=== PATIENT | female | born 1975 | race African-American/Black ===

== ENCOUNTER 2024-05-24 20:15 | Emergency (ER) | payer OTHER ==
[~2024-05-24] VITALS: Ht 172.7 cm; Wt 85.0 kg
[2024-05-24 20:18] VITALS: BP 160/83; PULSE 118; RESP 22; O2SAT 100
[2024-05-24] MEDS: LORAZEPAM 1MG TABLET PO ONE (22:27)
[2024-05-24] MEDS ORDERED: HYDR-3992 MT (22:57)
== END 2024-05-25 01:57 | disposition home or self-care (01) ==
LOC: ER 20:15
DX: F41.0 Panic disorder [episodic paroxysmal anxiety] (principal); K21.9 Gastro-esophageal reflux disease without esophagitis
CPT/HCPCS: 93005; 99283

== ENCOUNTER 2024-08-09 14:18 | Emergency (ER) | payer OTHER ==
[~2024-08-09] VITALS: Ht 177.8 cm; Wt 80.0 kg
[~2024-08-09 14:18] MED LIST: HYDR-3992 MT
[2024-08-09 14:21] VITALS: BP 161/96; PULSE 132; RESP 18; TEMP 98.2; O2SAT 97
[2024-08-09] MEDS ORDERED: IBUPROFEN 400MG TABLET PO ONE (14:45)
[2024-08-09] MEDS ORDERED: ACETAMINOPHEN 325MG TABLET PO ONE (14:45)
[2024-08-09] MEDS ORDERED: LORAZEPAM 0.5MG TABLET PO ONE (14:45)
[2024-08-09 15:54] LABS: BASOPHILS % 0.3 % (0.0-2.0); EOSINOPHILS % 0.8 % (0.0-5.0); HEMATOCRIT. 39.4 % (36.0-48.0); HEMOGLOBIN. 13.1 g/dL (12.0-16.0); LYMPHOCYTES % 7.5 % (20.0-50.0); MEAN CORPUSCULAR HEMOGLOBIN 28.6 pg (28.0-32.0); MEAN CORPUSCULAR HGB CONC 33.3 g/dL (31.0-37.0); MEAN CORPUSCULAR VOLUME 85.8 fL (81.0-99.0); MEAN PLATELET VOLUME 7.3 fl (7.4-10.4); MONOCYTES % 6.4 % (2.0-8.0); PLATELET 381 x1000/uL (130-400); RED CELL DISTRIBUTION WIDTH 14.2 % (11.6-14.6); WHITE BLOOD COUNT 11.1 x1000/uL (4.5-11.0)
[2024-08-09 16:02] LABS: CHLORIDE 107 mEq/L (98-107); POTASSIUM 3.8 mEq/L (3.5-5.1); SODIUM 139 mEq/L (136-145)
[2024-08-09 16:03] LABS: CARBON DIOXIDE 27 mEq/L (21-32)
[2024-08-09 16:04] LABS: CALCIUM 9.6 mg/dL (8.7-10.4)
[2024-08-09 16:06] LABS: HCG SCREEN NEGATIVE
[2024-08-09 16:08] LABS: CREATININE 0.8 mg/dL (0.6-1.0); GLUCOSE 107 mg/dL (70-105)
[2024-08-09 16:09] LABS: UREA NITROGEN BLOOD 12 mg/dL (9-23)
[2024-08-09 16:10] LABS: ALANINE AMINOTRANSFERASE 9 IU/L (10-49); ALBUMIN 4.4 g/dL (3.2-4.8); ASPARTATE AMINOTRANSFERASE 11 IU/L (<34); TROPONIN I HIGH SENSITIVITY 4 ng/L (3.0-34)
[2024-08-09 16:11] LABS: BILIRUBIN TOTAL 0.7 mg/dL (0.1-1.0); PROTEIN TOTAL 7.7 g/dL (6.0-8.3)
[2024-08-09 16:14] LABS: THYROID STIMULATING HORMONE 1.81 uIU/mL (0.55-4.78)
== END 2024-08-09 19:26 | disposition home or self-care (01) ==
LOC: ER 14:18
DX: R07.89 Other chest pain (principal); K21.9 Gastro-esophageal reflux disease without esophagitis; F41.9 Anxiety disorder, unspecified
CPT/HCPCS: 36415; 71045; 80053; 83880; 84443; 84484; 84703; 85025; 93005; 99285